=== PATIENT | female | born 1940 | race Asian ===

== ENCOUNTER 2017-10-08 18:05 | Emergency (ER) | payer SELFPAY ==
[~2017-10-08] VITALS: Ht 157.5 cm; Wt 49.9 kg
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
[2017-10-08 18:05] VITALS: BP 124/75
--- NOTE | 2017-10-08 19:01 | Diagnostic Imaging Report ---
EXAM: XR Right Knee, 3 views CLINICAL HISTORY: PAIN TECHNIQUE: Three views of the right knee. COMPARISON: No relevant prior studies available. FINDINGS: Bones/joints: No acute fracture or malalignment. Soft tissues: Unremarkable. IMPRESSION: No acute osseous abnormality.
[2017-10-08] MEDS ORDERED: ACETAMINOPHEN500 M3 ORAL (19:08)
[2017-10-08 20:15] VITALS: BP 162/75
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
--- NOTE | 2017-10-08 21:08 | Diagnostic Imaging Report ---
EXAM: CT Left Lower Extremity Without Intravenous Contrast, Hip CLINICAL HISTORY: PAIN TECHNIQUE: Axial computed tomography images of the left hip without intravenous contrast. CTDI is 0.25, 11.52 mGy and DLP is 340 mGy-cm. One or more of the following dose reduction techniques were used: automated exposure control, adjustment of the mA and/or kV according to patient size, use of iterative reconstruction technique. COMPARISON: No relevant prior studies available. FINDINGS: Bones/joints: No acute fracture or dislocation. Soft tissues: Subcutaneous stranding in the lateral left hip. Bowel: Colonic diverticulosis without focal inflammatory change. IMPRESSION: No acute fracture or dislocation.
[2017-10-08 21:10] VITALS: BP 162/75
--- NOTE | 2017-10-09 12:09 | Cardiology Report ---
APPROVED REPORT EKG Measurement Heart [id number] Normal sinus rhythm Left anterior fascicular block Inferior infarct, age undetermined Abnormal ECG
== END 2017-10-08 21:11 | disposition home or self-care (01) ==
LOC: EDBD 18:05 → EMR 18:34
DX: S80.01XA Contusion of right knee, initial encounter (principal); Y09 Assault by unspecified means; Y92.9 Unspecified place or not applicable; M25.552 Pain in left hip
CPT/HCPCS: 73502; 93005; 99283